=== PATIENT | female | born 1995 | race Hispanic/Latino ===

== ENCOUNTER 2022-08-30 07:28 | Emergency (ER) | payer SELFPAY ==
[~2022-08-30] VITALS: Ht 157.5 cm; Wt 79.4 kg
[2022-08-30] MEDS ORDERED: 0.9%NACL 1000ML 1,000 ML IV ONE (08:30)
[2022-08-30] MEDS ORDERED: ONDANSETRON 4MG INJ IVP ONE (08:30)
[2022-08-30] MEDS ORDERED: MORPHINE 2 MG SYG IVP ONE (08:30)
[2022-08-30] MEDS ORDERED: METH4TAB3 PO (11:15)
[2022-08-30 11:22] VITALS: BP 132/78; PULSE 78; RESP 18; O2SAT 98
== END 2022-08-30 11:27 | disposition home or self-care (01) ==
LOC: EDH 07:28
DX: J02.8 Acute pharyngitis due to other specified organisms (principal); Z20.822 Contact with and (suspected) exposure to COVID-19; Z98.890 Other specified postprocedural states; Z88.6 Allergy status to analgesic agent
CPT/HCPCS: 99284; 96374; 87635; 96361; 96375; 87880; 86308; 87804 ×2; 81025; 36415; C9803; J2270; J7030; J2405

== ENCOUNTER 2024-01-18 15:47 | Emergency (ER) | payer SELFPAY ==
[~2024-01-18] VITALS: Ht 160 cm; Wt 77.1 kg
[~2024-01-18 15:47] MED LIST: METH4TAB3 PO
[2024-01-18] MEDS: cefTRIAXone 1G VIAL IM ONE (16:32)
[2024-01-18] MEDS: dexaMETHasone SOD PHOSPHATE 4 MG/ML 1ML VIAL IM ONE (16:33)
[2024-01-18 16:38] LABS: RAPID GROUP A STREP negative (NEGATIVE)
[2024-01-18 16:41] LABS: SARS-CoV-2, RNA, NAAT NEGATIVE SARS CoV-2 (NEGATIVE)
[2024-01-18 16:47] LABS: INFLUENZA TYPE A Negative For Type A (NEGATIVE); INFLUENZA TYPE B Negative For Type B (NEGATIVE)
[2024-01-18 17:19] VITALS: BP 121/76; PULSE 95; RESP 20; TEMP 99; O2SAT 97
[2024-01-18] MEDS ORDERED: AMOX1TAB16 PO (17:27)
== END 2024-01-18 17:30 | disposition home or self-care (01) ==
LOC: EDH 15:47
DX: J02.9 Acute pharyngitis, unspecified (principal); Z20.822 Contact with and (suspected) exposure to COVID-19; Z79.899 Other long term (current) drug therapy; Z88.6 Allergy status to analgesic agent; Z98.890 Other specified postprocedural states
CPT/HCPCS: 99284; 87635; 87880; 87804 ×2; 96372 ×2; J1100; J0696

== ENCOUNTER 2024-02-25 09:43 | Emergency (ER) | payer SELFPAY ==
[~2024-02-25] VITALS: Ht 157.5 cm; Wt 81.6 kg
[~2024-02-25 09:43] MED LIST changes: +AMOX1TAB16 PO
--- NOTE | 2024-02-25 10:02 | ERN ---
General Chief Complaint: Ankle Problem Stated Complaint: RIGHT ANKLE INJURY Time Seen by MD: 09:58 Time Seen by Midlevel: 09:58 Source: patient History of Present Illness Initial Comments Patient is a 29-year-old female presenting with right ankle pain and swelling. She states that approximately four days ago she was walking down the stairs when she missed a step and rolled her right ankle. Denies any head injury or fall. She reports an increase in swelling so she decided to report to the ER for further evaluation. Denies any other complaints at this time. Allergies: Coded Allergies: ibuprofen (Unverified Allergy, Unknown, 01/28/14) Home Meds Active Scripts Amoxicillin/Potassium Clav (Amox Tr-K Clv 875-125 mg Tab) 875 Mg-125 Mg Tablet, 1 EACH PO BID for 7 Days, #14 TAB 0 Refills Prov:RAJ PANDEY 01/18/24 Methylprednisolone (Medrol) 4 Mg Tab.ds.pk, 4 MG PO as directed on pack, #1 PACK Prov:JOSE ANGEL WHELAN MD 08/30/22 Past Medical History Past Medical History: No Pertinent History Past Surgical History: Female( History) LMP: Feb 24, 2024 : 2 Para: 2 ROS Dictation CONSTITUTIONAL: Negative except for HPI HEAD/FACE: Negative except for HPI EENT: Negative except for HPI RESPIRATORY: Negative except for HPI GASTROINTESTINAL/ABDOMINAL: Negative except for HPI GENITOURINARY: Negative except for HPI MUSCULOSKELETAL: Negative except for HPI INTEGUMENTARY: Negative except for HPI NEUROLOGICAL/PSYCH: Negative except for HPI HEMATOLOGIC/LYMPHATIC: Negative except for HPI All Systems Negative, Except as noted above. 13 point review of systems assessed and all negative except for above. Physical Exam Physical Exam Dictation PHYSICAL EXAM: GENERAL: alert,, awake oriented x 3 HEENT: EOMI, Sclera non icteric, moist mucosa NECK: Supple, no JVD, trachea midline LUNGS: Clear breath sounds bilaterally. No wheezes HEART: Regular rate and rhythm. Normal S1 and S2, without murmurs ABD: Abdomen soft, nontender. Bowel sounds present EXT: Tenderness and swelling to the right lateral malleolus of the right ankle, 2+ DP, PT pulse, normal capillary refill of the right foot, right lower extre mity is neurovascularly intact NEURO: Alert and oriented to person, follows commands MDM MDM: 29-year-old female with no significant past medical history presenting with right ankle pain that started four days ago after she missed a step going down the stairs twisting her ankle. She states initially it had gotten better but she has been walking on it and has now noticed swelling so she decided to report to the ER for further evaluation. Denies any other injury. On physical examination she was tenderness and swelling to the lateral malleolus of the right ankle. X-ray does not show any acute fracture. Patient was placed on a gel splint and was given crutches for outpatient management. Return precautions discussed. Differential diagnosis: Fracture, sprain, strain There are no social concerns with this patient. Prescription drug management Prescriptions will include: None Medical management and examination interpretation discussions were had by me with other qualified healthcare professionals as indicated for the patient's care. ED Course Orders Procedure Category Date Status Time Ankle Comp 3vws Rt RAD 02/25/24 Resulted 09:52 *Nursing CPOE 02/25/24 Transmitted Communication: 11:30 Crutches W/Training CPOE 02/25/24 Transmitted (Er) 11:30 Vital Signs Date Time Temp Pulse Resp B/P (MAP) Pulse Ox O2 Delivery O2 Flow Rate FiO2 02/25/24 10:04 98.6 92 20 126/86 96 Room Air* 0 21 02/25/24 09:44 98.6 92 20 126/86 96 0 DX & DISP Disposition: Discharge Departure Impression: Primary Impression: Right ankle sprain Condition: Stable Additional Instructions: Your right ankle x-ray does not show any acute fracture. You will need to use crutches for the next couple of days to help your right ankle heal. Follow up with your primary care doctor in 2-3 days for repeat evaluation. Return to the emergency department for any new or worsening symptoms. Referrals: NONE (PCP) Time of Disposition: 11:31 I have reviewed the case, and I agree with, Diagnosis and Plan I performed the substantive portion of the visit. I have reviewed and personally made and approve the management plan that is documented in the note by myself or the KRISTI. I acknowledge for responsibility for the patient's management plan. RAJ PANDEY Feb 25, 2024 10:02 CADE NELSON DO Feb 25, 2024 14:15
[2024-02-25 10:04] VITALS: BP 126/86; PULSE 92; RESP 20; TEMP 98.6; O2SAT 96
--- NOTE | 2024-02-25 12:04 | HMCIMG ---
ANKLE COMP 3VWS RT REASON: injury TECHNIQUE: 3 views were obtained. FINDINGS: There is no evidence of fracture or dislocation. There is no joint effusion. The soft tissues appear unremarkable. There is no evidence of a radiopaque foreign body. IMPRESSION: No acute findings.
== END 2024-02-25 11:58 | disposition home or self-care (01) ==
LOC: EDH 09:43
DX: S93.401A Sprain of unspecified ligament of right ankle, initial encounter (principal); Z88.6 Allergy status to analgesic agent; W18.39XA Other fall on same level, initial encounter; Y93.01 Activity, walking, marching and hiking; Y92.89 Other specified places as the place of occurrence of the external cause; Y99.8 Other external cause status
CPT/HCPCS: 29515; 73610; 99283